=== PATIENT | male | born 1955 | race Caucasian/White ===

== ENCOUNTER 2017-06-26 23:38 | Emergency (ER) | payer BC, OTHER ==
[2017-06-26] MEDS ORDERED: diazePAM INJ 10 MG/2 ML SYG IV ONE (23:52)
[2017-06-26] MEDS ORDERED: HYDROmorphone HCL INJ 2 MG/ML VIAL IV ONE (23:52)
--- NOTE | 2017-06-27 00:13 | RAD ---
Procedure: XR RIGHT SHOULDER 2 OR MORE VIEWS Exam Date: 06/27/2017 Ordering Provider: Nella Green Clinical Indication: pain s/p fell, prob dislocated Comparison: None FINDINGS: Anterior-inferior glenohumeral dislocation. No acute fracture. Degenerative changes at the acromioclavicular joint. No lytic or sclerotic lesions. IMPRESSION: 1. Anterior-inferior dislocation without definite fracture lucency. Electronically signed by: Bjorn Diallo MD 06/27/2017 12:12 AM CDT
--- NOTE | 2017-06-27 00:42 | RAD ---
Procedure: XR RIGHT SHOULDER 2 OR MORE VIEWS Exam Date: 06/27/2017 Ordering Provider: Nella Green Clinical Indication: post reduction Comparison: 06/27/2017 0001 FINDINGS: Interval reduction of the glenohumeral dislocation. There is no acute fracture or dislocation. No lytic or sclerotic lesions. IMPRESSION: 1. Interval reduction of the right shoulder dislocation. Electronically signed by: Bjorn Diallo MD 06/27/2017 12:41 AM CDT
--- NOTE | 2017-06-27 01:03 | ED.PDOC ---
History of Present Illness - General Chief Complaint: Upper Extremity Injury Stated Complaint: Right shoulder pain Time Seen by Provider: 06/26/17 23:48 Source: patient, RN notes reviewed, Vital Signs reviewed Exam Limitations: no limitations - History of Present Illness Initial Comments: Patient tripped over his cat and fell injuring his right shoulder. Thinks it is dislocated. Occurred: just prior to arrival Pain - Upper Extremity: severe: Shoulder, right Method of Injury: fell Improving Factors: immobilization Worsening Factors: movement Allergies/Adverse Reactions: Allergies NO KNOWN ALLERGY Allergy (Verified 10/03/15 09:50) Home Medications: Ambulatory Orders Gabapentin [Neurontin] 300 mg PO BID 08/06/15 Fluocinonide 0.05 % Cream [Lidex Cream] 1 applic TOP BID 10/03/15 Lisinopril/Hctz 20-12.5 mg [Zestoretic 20-12.5 mg] 1 ea PO DAILY 10/03/15 Cyclobenzaprine HCl [Flexeril] 10 mg PO TID PRN #60 tab 10/07/15 Rivaroxaban [Xarelto] 10 mg PO QD #31 tab 10/07/15 Tramadol HCl [Ultram] 50 mg PO Q6H #50 tab 10/07/15 Review of Systems - Review of Systems Constitutional: States: no symptoms reported Respiratory: States: no symptoms reported Cardiology: States: no symptoms reported Musculoskeletal: States: see HPI, joint pain Skin: States: no symptoms reported Neurological: States: no symptoms reported. Denies: numbness, paresthesia, tingling, weakness All other Systems: No Change from Baseline Past Medical History (General) - Patient Medical History Hx Seizures: No Hx Stroke: No Hx Dementia: No Hx Asthma: No Hx of COPD: No Hx Cardiac Disorders: No Hx Congestive Heart Failure: No Hx Pacemaker: No Hx Hypertension: Yes Hx Thyroid Disease: No Hx Diabetes: No Hx Gastroesophageal Reflux: No Hx Renal Disease: No Hx Cancer: No Hx of HIV: No Hx Hepatitis C: No Hx MRSA: No Surgical History: other - Vaccination History Hx Tetanus, Diphtheria Vaccination: No Hx Influenza Vaccination: No Hx Pneumococcal Vaccination: No Immunizations Up to Date: Yes - Social History Hx Tobacco Use: No Hx Alcohol Use: Yes Hx Substance Use: No Hx Physical Abuse: No Hx Emotional Abuse: No Family Medical History - Family History Father Living Status: Physical Exam - Physical Exam General Appearance: Alert, No apparent distress, Well Developed, Well Groomed, Well Hydrated, Well Nourished Cardiovascular/Respiratory: normal peripheral pulses, no respiratory distress Shoulder Exam: asymmetry, deformity - obvious dislocation, limited ROM, pain - Right shoulder Elbow/Forearm Exam: normal inspection, non-tender, no evidence of injury, normal ROM Wrist Exam: normal inspection, non-tender, no evidence of injury, normal ROM Hand Exam: normal inspection, non-tender, no evidence of injury, normal ROM Neuro/Tendon: normal sensation, normal motor functions, normal tendon functions , no evidence tendon injury Mental Status: alert, oriented x 3 Skin Exam: normal color, warm/dry Comments: Vital Signs 06/26/17 06/26/17 06/27/17 23:42 23:43 00:30 Temperature 96.6 F L Pulse Rate [ 63 63 Left radial] Respiratory 20 20 Rate Blood Pressure 146/101 [Left Arm] O2 Sat by Pulse 97 97 Oximetry 06/27/17 00:38 Temperature Pulse Rate [ 82 Left radial] Respiratory 18 Rate Blood Pressure 114/69 [Left Arm] O2 Sat by Pulse 99 Oximetry Progress - Progress Progress: 06/27/17 01:04 Patient given Valium 5mg and Dilaudid 1mg IV - EKG/XRAY/CT XRAY: Shoulder: Anterior-inferior dislocation w/o fx per Rad Xray Comments: Post reduction R shoulder: Good positioning Procedures - Joint Reduction right shoulder Conscious Sedation: No - Patient given Dilaudid and Valium Reduction Attempts: 1 Pre-Procedure NV Exam: Yes - normal Post Joint Reduction Film: no fracture seen Progress: Placed in sling Departure - Departure Clinical Impression: Dislocation of shoulder, right, closed Qualifiers: Encounter type: initial encounter Qualified Code(s): S43.004A - Unspecified dislocation of right shoulder joint, initial encounter Time of Disposition: 01:07 Disposition: Discharge to Home or Self Care Condition: Good Departure Forms: ED Discharge - Pt. Copy, Patient Portal Self Enrollment Instructions: DI for Shoulder Dislocation Diet: resume usual diet Activity: increase activity as tolerated Referrals: Benoit Morales MD [Primary Care Provider] - 1-2 Weeks Home Medications: Ambulatory Orders Gabapentin [Neurontin] 300 mg PO BID 08/06/15 Fluocinonide 0.05 % Cream [Lidex Cream] 1 applic TOP BID 10/03/15 Lisinopril/Hctz 20-12.5 mg [Zestoretic 20-12.5 mg] 1 ea PO DAILY 10/03/15 Cyclobenzaprine HCl [Flexeril] 10 mg PO TID PRN #60 tab 10/07/15 Rivaroxaban [Xarelto] 10 mg PO QD #31 tab 10/07/15 Tramadol HCl [Ultram] 50 mg PO Q6H #50 tab 10/07/15
[2017-06-27 01:19] VITALS: BP 120/80; TEMP 97.2; O2SAT 100
== END 2017-06-27 01:18 | disposition home or self-care (01) ==
LOC: ER 23:38
DX: S43.004A Unspecified dislocation of right shoulder joint, initial encounter (principal); I10 Essential (primary) hypertension; W01.0XXA Fall on same level from slipping, tripping and stumbling without subsequent striking against object, initial encounter; Y92.9 Unspecified place or not applicable
CPT/HCPCS: 73030; J1170; J3360